=== PATIENT | female | born 1995 | race Caucasian/White ===

== ENCOUNTER 2017-01-25 04:52 | Inpatient (IN) | payer OTHER ==
[~2017-01-25] VITALS: Ht 152.4 cm; Wt 63.5 kg
[~2017-01-25 04:52] MED LIST: PRENAT PO
[2017-01-25] MEDS ORDERED: FERR134T PO (05:22)
[2017-01-25 05:32] VITALS: BP 121/65; PULSE 101; RESP 18
[2017-01-25 06:40] LABS: ADD UMIC NO; UR ASCORBIC ACID NEGATIVE (NEGATIVE); UR BILIRUBIN (Dip) NEGATIVE (NEGATIVE); UR BLOOD (Dip) NEGATIVE (NEGATIVE); UR CLARITY CLEAR (CLEAR); UR COLOR STRAW (YELLOW); UR GLUCOSE (Dip) NEGATIVE (NEGATIVE); UR KETONES (Dip) NEGATIVE (NEGATIVE); UR LEUKOCYTE ESTERASE (Dip) NEGATIVE Leu/ul (NEGATIVE); UR NITRITE (Dip) NEGATIVE (NEGATIVE); UR SPECIFIC GRAVITY (Dip) 1.008 (1.003-1.030); UR TOTAL PROTEIN (Dip) NEGATIVE (NEGATIVE); UR UROBILINOGEN (Dip) NEGATIVE (NEGATIVE)
--- NOTE | 2017-01-25 06:53 | RADRPT ---
PROCEDURE: Obstetrical ultrasound, limited. CLINICAL INDICATION: Pelvic pain. TECHNIQUE: Multiple sonographic images of the pelvis were obtained using transabdominal technique . Images were obtained with morgan scale and color Doppler. The images were reviewed on a PACS works tation. COMPARISON: None. FINDINGS: There is a single living intrauterine gestation with the fetus in a vertex presentation. hear t tones of 174 beats per minute are identified. The placenta is posterior and fundal in location, g rade 3. There is low amniotic fluid volume with an LOLITA of 5.2 cm. There is no evidence of placenta previa or abruption. Measurements were made in order to determine age. The results are as follows: BPD =9.17 cm HC =32.71 cm AC =34.66 cm FL =6.95 cm. Estimated gestational age of approximately 37 weeks and 1 day. The estimated date of delivery is 02/14/2017. The EFW = 3251 +/- 488 grams. Estimated weight percentage equals 40.7%. IMPRESSION: Single viable intrauterine gestation of approximately 37 weeks and 1 day, with an ultrasound SARAH of 02/14/2017. Borderline oligohydramnios with an LOLITA of 5.2 cm. .Agus Bermudez MD, Date Time Electronically viewed and signed by .Agus Bermudez MD, on 01/25/2017 06:52 .T/
--- NOTE | 2017-01-25 08:25 | TRIAGE ---
OB Triage Datetime Report Generated by CPN: 01/25/2017 08:25 Datetime: 01/25/2017 08:06 Vaginal Exam Dilatation (cms): 3.0 Effacement (%): 70 Station: -2 Exam By: KHEMANI Vaginal Bleeding: None Cervix, Consistency: Soft Cervix, Position: Midposition Datetime: 01/25/2017 08:01 Monitor Mode: External Monitor Mode: External US Datetime: 01/25/2017 06:28 Stage of : OB Triage Datetime: 01/25/2017 05:51 Labor Evaluation Frequency: 11 Monitor Mode: External Duration (sec)2399: 40-120 Quality: Mild Pattern: Normal: <= 5 Contractions in 10 Minutes Resting Tone [place]: Relaxed Heart Rate FHR Baseline Rate: 135 Monitor Mode: External US FHR Baseline Changes: No Baseline Change Variability: Moderate 6-25 bpm Accelerations: 15X15 Decelerations: None Category: Category I Datetime: 01/25/2017 05:27 Stage of : OB Triage Time of Arrival: 01/25/2017 04:50 EGA: 38.4 Arrived By: Ambulatory Arrived From: Home Chief Complaint: CONTRACTIONS SINCE 0200 Movement: Present Contractions: Irregular Time Contractions Began: 01/25/2017 02:00 Contractions: q10 Rupture of Membranes: Denies Vaginal Bleeding: None Vaginal Discharge: Denies Recent Sexual Intercouse: Denies Abdominal Trauma: Not Applicable Patient Complaints: None (Annotations: Data stored by CPN on behalf of user) Time Provider Notified: 01/25/2017 05:45 Provider Notified: DR KHOURY Initial Plan: CALL MD, EFM, EFW, LOLITA, UA Maternal Assessment Level of Consciousness: Fully Conscious DTR's/Clonus: DTRs 2+; No Clonus Headache: Denies Blurred Vision: No Respiratory Effort: Unlabored; Regular Rhythm; Equal Expansion Breath Sounds, Left: Clear and Equal Breath Sounds, Right: Clear and Equal Nausea/Vomiting: Denies RUQ Epigastric Pain: Denies Facial Edema: None Temperature Route: Axillary Fall Risk Assessment History of Falling: (0) No Secondary Diagnosis: (0) No Ambulatory Aid: (0) Bedrest/Nurse Assist IV Therapy: (0) No Gait: (0) Normal/Bedrest/Immobile Mental Status: (0) Oriented to Own Ability Fall Score: 0 Fall Risk Score Definition: No Risk: No action required Datetime: 01/25/2017 05:19 Vaginal Exam Dilatation (cms): 2.0 Effacement (%): 60 Station: -3 Exam By: Ruddy CASTILLO RN Vaginal Bleeding: None Cervix, Consistency: Moderate Cervix, Position: Posterior Presentation 'A': Cephalic Datetime: 01/25/2017 05:01 Time of Arrival: 01/25/2017 04:50 EGA: 38.4 Arrived By: Wheelchair Arrived From: Home Chief Complaint: c/o ucs (Annotations: Data stored by CPN on behalf of user) Movement: Present Contractions: Irregular Time Contractions Began: 01/25/2017 02:00 Contractions: Q10 Rupture of Membranes: Denies Vaginal Bleeding: None Vaginal Discharge: Denies Recent Sexual Intercouse: Denies Abdominal Trauma: Not Applicable Patient Complaints: Contractions
[2017-01-25] MEDS ORDERED: CARBOPROST 250 MCG INJ IM PRN (08:30)
[2017-01-25] MEDS ORDERED: BUTORPHANOL 2 MG INJ IV PRN (08:30)
[2017-01-25] MEDS ORDERED: OXYTOCIN 30 UNITS/LR 500 ML IV SCH ×4 (08:30→20:14)
[2017-01-25] MEDS ORDERED: LIDOCAINE 1% (MPF) 30 ML INJ INJ PRN (08:30)
[2017-01-25] MEDS ORDERED: METHYLERGONOVINE 0.2 MG INJ IM PRN (08:30)
[2017-01-25] MEDS ORDERED: LACTATED RINGER'S 1,000 ML IV PRN (08:30)
[2017-01-25] MEDS ORDERED: IBUPROFEN 600 MG TAB PO PRN (08:30)
[2017-01-25] MEDS ORDERED: MISOPROSTOL 200 MCG TAB PR PRN (08:30)
[2017-01-25] MEDS ORDERED: OXYTOCIN 30 UNITS/LR 500 ML IV PRN (08:30)
--- NOTE | 2017-01-25 08:54 | HP ---
Date/Time of Note Date/Time of Note DATE: 01/25/17 TIME: 08:52 OB - History Hx of Present : 4 Para: 1 Care: Good Care Obstetrical Complications: None Medical Complications: None Past Family/Social History * Past Medical, Surgical, Family and Obstetric Histories reviewed from chart. Blood Type: Unknown OB Admission Exam Vital Signs Vital Signs Vital Signs Date Time Temp Pulse Resp B/P Pulse Ox O2 Delivery O2 Flow Rate FiO2 01/25/17 05:32 98.4 101 18 121/65 Room Air Physical Exam HEENT: WNL Heart: Rhythm Normal Lungs: Clear Abdomen: WNL Extremities: Normal Cervical Dilatation: 3cm Effacement: 50% Station: -3 Membranes: Intact Accelerations: Accelerations Present Decelerations: No Decelerations Contractions on Admission: 6-10 Minutes Apart OB Assessment/Plan Reason for admission: active labor Other Assessment: Oligohydramnios- LOLITA 5.2cm Plan: Other Induction Method: per Pitocin Protocol RONAK RICHARDS Jan 25, 2017 08:54
[2017-01-25 09:17] LABS: ABNORMAL IP MESSAGE 1; BASOPHILS % 0.4 % (0.0-2.0); EOSINOPHILS % 0.2 % (0.0-7.0); HEMATOCRIT 26.6 % (37.0-47.0); HEMOGLOBIN 7.2 g/dl (12.0-16.0); LYMPHOCYTES # 1.7 10^3/ul (0.8-2.9); LYMPHOCYTES % 35.3 % (18.0-55.0); MEAN CORPUSCULAR HEMOGLOBIN 18.7 pg (29.0-33.0); MEAN CORPUSCULAR HGB CONC 27.1 g/dl (32.0-37.0); MEAN CORPUSCULAR VOLUME 69.1 fl (72.0-104.0); MEAN PLATELET VOLUME 10.8 fl (7.4-10.4); MONOCYTE # 0.5 10^3/ul (0.3-0.9); MONOCYTES % 9.4 % (0.0-13.0); NEUTROPHIL # 2.6 10^3/ul (1.6-7.5); NEUTROPHILS % 54.3 % (30.0-74.0); NUCLEATED RED BLOOD CELLS% 0.4 /100WBC (0.0-0.0); PLATELET COUNT 333 10^3/UL (140-415); RED BLOOD COUNT 3.85 10^6/ul (4.20-5.40); RED CELL DISTRIBUTION WIDTH 18.8 % (11.5-14.5); WHITE BLOOD COUNT 4.8 10^3/ul (4.8-10.8)
[2017-01-25] MEDS: LACTATED RINGER'S 1,000 ML IV SCH ×2 (09:17→13:34)
[2017-01-25 09:27] LABS: POSITIVE DIFF @See below
[2017-01-25 09:50] LABS: INR 0.89; PARTIAL THROMBOPLASTIN TIME 25.8 Sec (25.0-35.0); PT RATIO 0.9
[2017-01-25] MEDS ORDERED: DIPHENHYDRAMINE 50 MG INJ IV PRN (10:30)
[2017-01-25] MEDS ORDERED: NALOXONE (0.4 MG/ML) INJ IV PRN (10:30)
[2017-01-25] MEDS ORDERED: FENTAnyl 2MCG/ML-ROPIV 0.2% 100 ML BAG EPI SCH (10:30)
[2017-01-25] MEDS ORDERED: ONDANSETRON 4 MG INJ IV PRN ×2 (10:30→20:30)
[2017-01-25] MEDS ORDERED: EPHEDrine SULFATE 50 MG/5 ML SYG IV PRN (10:30)
--- NOTE | 2017-01-25 17:30 | LDN ---
Date/Time of Note Date/Time of Note DATE: 01/25/17 TIME: 17:21 Delivery Summary Normal spontaneous vaginal delivery of a baby boy from OA position shoulders delivered with no difficulty rest of the baby's body followed cord clamped after stopped pulsation placenta spontaneous expulsion inspected complete blood loss 200 cc patient sustained 1 cm small first-degree perineal laceration repaired with 3-0 chromic catgut Weeks of Gestation 38 weeks 4 days Placenta Delivered: Spontaneously Episiotomy: No Laceration repair: First-degree perineal laceration repaired with 3-0 chromic and 4-0 chromic catgut Anesthesia type: Epidural Sponge & Needle done & correct: Yes All needle counts correct: Yes Any foreign bodies felt in the: No Problems: Infant Delivery Information Sex Infant Sex: male Apgars 1 Minute: 8 5 Minute: 9 Suctioning Nose & mouth suctioned at jerson: Yes Delee suction performed: No Umbilical Cord Umbilical cord with: 3 Vessels Cord presentations: no nuchal cord Cord Blood was obtained: Yes NIKKI MEHTA MD Jan 25, 2017 17:30
[2017-01-25 19:05] VITALS: BP 122/72; PULSE 103; RESP 18
[2017-01-25 19:27] LABS: BARBITURATES Negative (NEGATIVE); BENZODIAZEPINES Negative (NEGATIVE); CANNABINOIDS Negative (NEGATIVE); COCAINE Negative (NEGATIVE); OPIATES Negative (NEGATIVE)
[2017-01-25 19:30] VITALS: BP 124/74; PULSE 94; RESP 18
[2017-01-25] MEDS ORDERED: OXYCODONE/ASPIRIN (4.88/325) TAB PO PRN ×2 (20:30)
[2017-01-25] MEDS ORDERED: ACETAMINOPHEN 325 MG TAB PO PRN (20:30)
[2017-01-25] MEDS ORDERED: HYDROCODONE/APAP (5/325) TAB PO PRN ×2 (20:30)
[2017-01-25] MEDS ORDERED: DIBUCAINE 1% 30 GM OINT PR PRN (20:30)
[2017-01-25] MEDS: SENNA/DOCUSATE NA (8.6MG/50MG) TAB PO SCH (20:33)
[2017-01-25] MEDS: BENZOCAINE 20% 56 ML SPRAY TOP PRN (23:53)
[2017-01-25] MEDS: LANOLIN 7 GM TUBE TOP PRN (23:53)
[2017-01-25] MEDS: WITCH HAZEL/GLYCERIN PAD PR PRN (23:53)
[2017-01-25] MEDS: IBUPROFEN 600 MG TAB PO SCH (23:54)
[2017-01-26 00:30] VITALS: BP 120/78; PULSE 92; RESP 17
[2017-01-26 04:00] VITALS: BP 116/68; PULSE 82; RESP 18
[2017-01-26] MEDS: IBUPROFEN 600 MG TAB PO SCH ×3 (05:38→19:00)
[2017-01-26 08:30] VITALS: BP 107/64; PULSE 86; RESP 16
[2017-01-26] MEDS: SENNA/DOCUSATE NA (8.6MG/50MG) TAB PO SCH ×2 (08:38→20:45)
[2017-01-26 11:32] LABS: ABNORMAL IP MESSAGE 1; BASOPHILS % 0.1 % (0.0-2.0); EOSINOPHILS % 0.1 % (0.0-7.0); HEMATOCRIT 20.6 % (37.0-47.0); LYMPHOCYTES # 1.3 10^3/ul (0.8-2.9); LYMPHOCYTES % 18.7 % (18.0-55.0); MEAN CORPUSCULAR HEMOGLOBIN 19.1 pg (29.0-33.0); MEAN CORPUSCULAR HGB CONC 27.7 g/dl (32.0-37.0); MEAN CORPUSCULAR VOLUME 68.9 fl (72.0-104.0); MONOCYTE # 0.5 10^3/ul (0.3-0.9); NEUTROPHILS % 73.8 % (30.0-74.0); PLATELET COUNT 260 10^3/UL (140-415); RED BLOOD COUNT 2.99 10^6/ul (4.20-5.40); RED CELL DISTRIBUTION WIDTH 18.9 % (11.5-14.5); WHITE BLOOD COUNT 6.7 10^3/ul (4.8-10.8)
--- NOTE | 2017-01-26 11:36 | QN ---
Documentation Comment Post normal vaginal delivery day 1 Afebrile Vital signs are stable Abdomen soft, uterus firm, lochia normal, extremities normal, ambulation is encouraged NIKKI MEHTA MD Jan 26, 2017 11:36
[2017-01-26 11:38] LABS: HEMOGLOBIN 5.7 g/dl (12.0-16.0); POSITIVE DIFF @See below
[2017-01-26 16:55] VITALS: BP 131/68; PULSE 93; RESP 14
[2017-01-26 19:45] VITALS: BP 124/62; PULSE 91; RESP 19
[2017-01-26] MEDS: BENZOCAINE 20% 56 ML SPRAY TOP PRN (20:45)
[2017-01-26] MEDS: WITCH HAZEL/GLYCERIN PAD PR PRN (20:45)
[2017-01-26] MEDS: LANOLIN 7 GM TUBE TOP PRN (20:45)
[2017-01-27] MEDS: IBUPROFEN 600 MG TAB PO SCH ×3 (00:10→11:44)
[2017-01-27 04:30] VITALS: BP 107/57; PULSE 81; RESP 19
[2017-01-27 08:30] VITALS: BP 100/60; PULSE 91; RESP 14
[2017-01-27] MEDS ORDERED: MEASLES,MUMPS,RUBELLA VACCINE INJ SC* ONE (09:00)
[2017-01-27] MEDS: SENNA/DOCUSATE NA (8.6MG/50MG) TAB PO SCH (09:59)
[2017-01-27 11:14] LABS: ABNORMAL IP MESSAGE 1; BASOPHILS % 0.2 % (0.0-2.0); EOSINOPHILS % 0.4 % (0.0-7.0); HEMATOCRIT 24.6 % (37.0-47.0); LYMPHOCYTES # 1.9 10^3/ul (0.8-2.9); LYMPHOCYTES % 22.3 % (18.0-55.0); MEAN CORPUSCULAR HEMOGLOBIN 18.9 pg (29.0-33.0); MEAN CORPUSCULAR HGB CONC 27.2 g/dl (32.0-37.0); MEAN CORPUSCULAR VOLUME 69.3 fl (72.0-104.0); MEAN PLATELET VOLUME 10.1 fl (7.4-10.4); MONOCYTE # 0.6 10^3/ul (0.3-0.9); MONOCYTES % 6.6 % (0.0-13.0); NEUTROPHIL # 5.9 10^3/ul (1.6-7.5); NEUTROPHILS % 69.8 % (30.0-74.0); PLATELET COUNT 348 10^3/UL (140-415); RED BLOOD COUNT 3.55 10^6/ul (4.20-5.40); RED CELL DISTRIBUTION WIDTH 18.8 % (11.5-14.5); WHITE BLOOD COUNT 8.4 10^3/ul (4.8-10.8)
[2017-01-27 11:23] LABS: POSITIVE DIFF @See below
[2017-01-27 11:25] LABS: HEMOGLOBIN 6.7 g/dl (12.0-16.0)
--- NOTE | 2017-01-27 13:00 | DS ---
Date/Time of Note Date/Time of Note DATE: 01/27/17 TIME: 13:00 Obstetrical Discharge Record Final Diagnosis Final Diagnosis: Term delivered Vaginal Delivery Obstetrical Delivery: Spontaneous Condition on Discharge Physical Assessment Voiding: Yes Bowel Movement: Yes Breast: Soft, non-tender Fundus: Firm Calf Tenderness: No Patient Condition: Good Copies To: CC: NIKKI MEHTA MD, BAHAREH MD Jan 27, 2017 13:00
== END 2017-01-27 15:40 | disposition home or self-care (01) | DRG 775 ==
LOC: OBT 04:52 → L-D 04:53 → OBT 08:22 → L-D 08:22 → PP1 19:15
PROVIDERS: ADMIT Obstetrics & Gynecology; ATTEND Obstetrics & Gynecology
PROC: 10E0XZZ Delivery of Products of Conception, External Approach (ICD-10-PCS; principal; 2017-01-25)
PROC: 0HQ9XZZ Repair Perineum Skin, External Approach (ICD-10-PCS; 2017-01-25)
DX: O41.03X0 Oligohydramnios, third trimester, not applicable or unspecified (principal); O70.0 First degree perineal laceration during delivery; Z3A.38 38 weeks gestation of pregnancy; Z37.0 Single live birth
CPT/HCPCS: 36415; 62319; 76815; 80307; 81003; 85025; 85610; 85730; 86592; 86900; 86901; 87340; G0463; J2590; J3010; J7120